=== PATIENT | female | born 1995 | race African-American/Black ===

== ENCOUNTER → 2020-09-03 10:38 | Outpatient (CLI) | payer MEDICAID, SELFPAY ==
[2020-09-03 12:24] LABS: hCG Titer Quant., Serum < 1 mIU/mL (1-3)
== END ==
PROVIDERS: Visit Provider Obstetrics & Gynecology
DX: O02.0 Blighted ovum and nonhydatidiform mole (principal)
CPT/HCPCS: 36415; 84702

== ENCOUNTER → 2020-09-05 10:20 | Outpatient (CLI) | payer MEDICAID, SELFPAY ==
[2020-09-05 11:35] LABS: hCG Titer Quant., Serum < 1 mIU/mL (1-3)
== END ==
PROVIDERS: Referring Provider Obstetrics & Gynecology; Visit Provider Obstetrics & Gynecology
DX: O20.0 Threatened abortion (principal); Z3A.00 Weeks of gestation of pregnancy not specified
CPT/HCPCS: 36415; 84702

== ENCOUNTER 2021-06-14 12:23 | Emergency (ER) | payer MEDICAID, SELFPAY ==
[2021-06-14 12:25] VITALS: BP 105/71; PULSE 74; RESP 16; TEMP 36.4; O2SAT 100; BMI 22.4
--- NOTE | 2021-06-14 13:23 | EX.ED.DYSGE1 ---
HPI History of Present Illness Chief Complaint: Other, Pain/Inj Informant: patient Onset/Context/Timing Onset: Weeks (2) Context: Gradual Onset Timing: Continuous Quality: Spinning Location: Head Worsened by: Laying down, movement of her head Relieved by: Nothing Narrative Narrative: Patient presents with difficulty swallowing, dizziness, fatigue, nausea, and vomiting for the past 2 weeks. Patient states it is worse when she gets up in the morning. Patient states it is also worse when she lays down. Patient states it is also worse whenever she moves her head. Patient describes her dizziness as a spinning sensation. Patient admits to some pain in her left ear as well. Patient states her vision feels blurry. Patient states she feels fatigued and tired.. Patient denies any fevers or chills. PFSH PFSH Medical History GERD (gastroesophageal reflux disease) Hyperthyroidism Smoker Home Medications NK 06/14/21 [History Last Taken Unknown] Allergy/AdvReac Type Severity Reaction Status Date / Time No Known Allergies Allergy Verified 06/14/21 12:25 Surgical History no surgical history no surgical history Social History (Updated 06/14/21 @ 13:[address] Ryan Reyes, DO) Electronic Cigarette Use: with nicotine substance use type: marijuana ROS ROS ED Constitutional Constitutional ED: Denies chills or fever(s) Eyes Eyes: Reports blurry vision; Denies diplopia ENT ENT ED: Reports ear pain left; Denies rhinorrhea or sore throat Cardiovascular Cardiovascular: Reports chest pain; Denies palpitations Respiratory/Chest Respiratory/Chest: Denies cough or dyspnea Gastrointestinal Gastrointestinal: Reports diarrhea, nausea and vomiting Genitourinary Genitourinary ED: Denies dysuria or hematuria Musculoskeletal Musculoskeletal: Reports back pain; Denies neck pain Integumentary Denies abscess or rash Neurologic Neurologic: Reports headache(s); Denies weakness Allergic/Immunologic Allergic/Immunologic ED: Denies mouth swelling or urticaria EXAM Physical Exam Const Vital Signs: 06/14/21 12:25 06/14/21 12:33 Temperature 97.6 F L Temperature Source Temporal Pulse Rate 74 Respiratory Rate 16 Respiratory Effort Normal Respiratory Pattern Normal Blood Pressure 105/71 Blood Pressure Mean 82 Pulse Ox 100 Oxygen Delivery Method Room Air Positive well nourished and well developed General Appearance ED: well developed and NAD HEENT Reports moist mucous membranes Eyes PERRL and EOMs intact bilaterally Neck supple and no JVD Neck Narrative: There is some mild tenderness over the right anterior neck. There are no masses palpated. There is no lymphadenopathy noted. Resp normal respiratory effort and clear to auscultation bilaterally Cardio regular rate and regular rhythm GI non-tender Palpation: soft Neuro oriented x3, CN's II-XII intact bilaterally and no sensory deficits noted Sensorium / Orientation: alert Motor Exam: strength 5/5 throughout MDM MDM MDM Narrative Medical decision making narrative: Patient was given IV fluids and a dose of meclizine here. CBC and comprehensive metabolic profile were within normal limits. Serum was negative. Urinalysis was within normal limits. CT scan of the soft tissue neck was obtained due to the patient sensation of swelling in her neck. There is no acute abnormality noted. This was interpreted by the radiologist and reviewed by myself. Patient feels better on reevaluation. Patient was able to ambulate to the bathroom and back without difficulty. Patient was advised of her findings. Patient was given a prescription for meclizine. Patient was instructed to follow-up with her primary care physician in 5 to 7 days for further evaluation. Patient understood and was agreeable with the plan. All questions were answered. Lab Data Attestation: I reviewed the patient's lab results. Labs: Laboratory Results - last 24 hr 06/14/21 06/14/21 06/14/21 14:02 14:02 14:02 WBC 4.4 RBC 4.87 Hgb 13.9 Hct 41.8 MCV 85.8 MCH 28.5 MCHC 33.3 RDW Std Deviation 38.9 RDW Coeff of Emily 12.4 Plt Count 285 MPV 10.2 Immature Gran % (Auto) 0.000 Neut % (Auto) 64.5 Lymph % (Auto) 28.2 [place] % (Auto) 6.1 Eos % (Auto) 0.5 Baso % (Auto) 0.7 Absolute Neuts (auto) 2.9 Absolute Lymphs (auto) 1.25 Nucleated RBC % 0 Sodium 141 Potassium 3.9 Chloride 109 H Carbon Dioxide 26.0 Anion Gap 6 BUN 7 Creatinine 0.95 Estim Creat Clear Calc 69.73 Est GFR (MDRD) Af Amer 90 Est GFR (MDRD) Non-Af 75 BUN/Creatinine Ratio 7.4 L Glucose 92 Calcium 9.8 Total Bilirubin 0.40 AST 19 ALT 17 Alkaline Phosphatase 51 Total Protein 7.5 Albumin 4.2 Globulin 3.3 Albumin/Globulin Ratio 1.3 Serum , Qual NEGATIVE Urine Color Urine Clarity Urine pH Ur Specific [place] Urine Protein Urine Glucose (UA) Urine Ketones Urine Occult Blood Urine Nitrite Urine Bilirubin Urine Urobilinogen Ur Leukocyte Esterase Urine RBC Urine WBC Ur Squamous Epith Cells Urine Bacteria Urine Mucus 06/14/21 14:02 WBC RBC Hgb Hct MCV MCH MCHC RDW Std Deviation RDW Coeff of Emily Plt Count MPV Immature Gran % (Auto) Neut % (Auto) Lymph % (Auto) [place] % (Auto) Eos % (Auto) Baso % (Auto) Absolute Neuts (auto) Absolute Lymphs (auto) Nucleated RBC % Sodium Potassium Chloride Carbon Dioxide Anion Gap BUN Creatinine Estim Creat Clear Calc Est GFR (MDRD) Af Amer Est GFR (MDRD) Non-Af BUN/Creatinine Ratio Glucose Calcium Total Bilirubin AST ALT Alkaline Phosphatase Total Protein Albumin Globulin Albumin/Globulin Ratio Serum , Qual Urine Color Yellow Urine Clarity Sl. Cloudy Urine pH 8.0 Ur Specific [place] 1.010 Urine Protein Negative Urine Glucose (UA) Normal Urine Ketones Negative Urine Occult Blood Negative Urine Nitrite Negative Urine Bilirubin Negative Urine Urobilinogen Normal Ur Leukocyte Esterase 25 H Urine RBC 0 SEEN Urine WBC 0-5 SEEN Ur Squamous Epith Cells 0-5 SEEN Urine Bacteria 0 SEEN Urine Mucus 0 SEEN Radiography Diagnostic Testing: Clinical Impression(s) from Imaging Studies Soft Tissue Neck CT 06/14/21 13:30 IMPRESSION: Normal enhanced CT examination of the soft tissues of the neck. Electronically Signed: Sheldon Dias MD at 15:26 EDT , Discharge Plan Triage Chief Complaint: Other, Pain/Inj ED Provider: Ryan Reyes Dx/Rx/DC Orders Clinical Impression: Vertigo, Odynophagia Instructions: ED Vertigo, Unspecified Prescriptions: No Action NK RF: 0 Primary Care Provider: Lesley Garcia SCHOLASTIC APTITUDE TEST GRADER Referrals: Lesley Garcia SCHOLASTIC APTITUDE TEST GRADER, SCHOLASTIC APTITUDE TEST GRADER-C [Primary Care Provider] - 5-7 Days Disposition Disposition: Home, Self Care
--- NOTE | 2021-06-14 13:30 | CT_ITS ---
STUDY: CT SOFT TISSUE NECK WITH CONTRAST REASON FOR EXAM: Female, 26 years old. Neck pain, dysphagia. Constant chest tightness for 2 weeks. RADIATION DOSAGE (If Supplied By Facility): CTDIvol = ( 11.43 ) mGy, DLP = ( 265.59 ) mGycm TECHNIQUE: The patient was scanned in a multi-detector CT scanner. High resolution transaxial imaging was performed following intravenous administration of 100 CC ISOVUE 300. Sagittal and coronal images were reconstructed. Individualized dose optimization techniques were used for this CT. COMPARISON: None. FINDINGS: Normal bilateral parotid glands. Normal bilateral drying can worker spaces. Normal bilateral parapharyngeal spaces. Normal bilateral carotid spaces. Normal bilateral sublingual and submandibular glands and spaces. Normal visualized nasopharynx. Normal retropharyngeal space. Normal perivertebral space. Normal visualized bilateral faucial tonsils. The visualized tongue, tongue base and oropharynx are normal. The visualized cervical lymph nodes (levels I-) are within normal size limits, and maintain normal morphology. There is no demonstrated solid or cystic mass lesion. There is no abnormal contrast enhancement. Normal epiglottis, bilateral vallecula and hypopharynx. The pre-epiglottic and paraglottic adipose spaces are normal. Normal visualized bilateral piriform sinuses, aryepiglottic folds, vocal cords, and arytenoid-cricoid articulations. Normal subglottic trachea. Normal bilateral lobes of the thyroid gland. Normal visualized pulmonary apices. Normal visualized paranasal sinuses. Normal visualized cervical spine. CT/Soft Tissue Neck WITH Contrast IMPRESSION: Normal enhanced CT examination of the soft tissues of the neck. Electronically Signed: Sheldon Dias MD at 15:26 EDT ,
[2021-06-14] MEDS: 0.9% Normal Saline 1,000 ML 1000 ML IV (13:56)
[2021-06-14] MEDS: Meclizine HCl 25 MG Tablet PO (14:00)
[2021-06-14 14:13] LABS: Absolute Lymphocyte Count 1.25 X10^3/uL (0.83-4.51); Absolute Neutrophil Count 2.9 X10^3/uL (2.0-7.7); Basophil# 0.03 X10^3/uL; Basophil% 0.7 % (0-1); Eosinophil# 0.02 X10^3/uL; Eosinophils% 0.5 % (0-5); Hematocrit 41.8 % (37-47); Hemoglobin 13.9 g/dL (12.0-15.0); Lymphocyte # 1.25 X10^3/ul (0.83-4.51); Lymphocyte % 28.2 % (19-41); Mean Corp Hgb Conc 33.3 g/dL (32-36); Mean Corpuscular Hgb 28.5 pg (27.0-32.0); Mean Corpuscular Volume 85.8 fL (81-99); Mean Platelet Vol. 10.2 fl (6.2-12.0); Monocyte# 0.27 X10^3/uL; Monocyte% 6.1 % (0-10); NRBC Flagged by Analyzer 0 % (0-5); Neutrophil # 2.86 X10^3/uL (2.7-7.7); Neutrophil % 64.5 % (47-70); Platelet Count 285 K/mm3 (150-450); RBC Distribution Width CV 12.4 % (11.6-14.6); RBC Distribution Width SD 38.9 fl (35.1-43.9); Red Blood Count 4.87 M/mm3 (4.2-5.4); White Blood Count 4.4 K/mm3 (4.4-11.0)
[2021-06-14 14:14] LABS: Bacteria 0 SEEN /hpf (None Seen); Color, Urine Yellow (Yellow); Glucose, Dipstick Normal (Normal); Ketone-Dipstick Negative (Negative); Leukocyte Esterase-Dipstick 25 /ul (Negative); Mucous, Urine 0 SEEN /hpf (<or=2+); Nitrite-Dipstick Negative (Negative); Occult Blood-Urine Negative /ul (Negative); Protein-Dipstick Negative (Negative); Red Blood Cells-Urine 0 SEEN /hpf (0-5); Urine Bilirubin Dipstick Negative (Negative); Urine Clarity Sl. Cloudy (Clear); Urine Urobilinogen Normal (Normal)
[2021-06-14 14:20] LABS: Squamous Epithelial Cells - UA 0-5 SEEN /hpf (5-10); White Blood Cells 0-5 SEEN /hpf (0-5)
[2021-06-14 14:29] LABS: ALB/GLOB Ratio 1.3 RATIO (0.9-2.4); AST(SGOT) 19 U/L (15-37); Alanine Aminotransfer ALT/SGPT 17 U/L (13-56); Albumin, Serum 4.2 g/dL (3.2-5.0); Alkaline Phosphatase 51 U/L (45-117); Anion Gap 6 (5-15); BUN 7 mg/dL (7-18); BUN/Creat Ratio 7.4 RATIO (10-20); Calcium,Total 9.8 mg/dL (8.5-10.1); Chloride 109 mmol/L (98-107); Creatinine, Serum 0.95 mg/dL (0.55-1.02); EST Glomerular Filtration Rate 75 mL/min (>60); Est Glom Filt Rate - Afr Amer 90 mL/min (>60); Estimated Creatinine Clearance 69.73 ml/min; Globulin 3.3 g/dL (2.2-4.2); Glucose 92 mg/dL (74-106); Potassium 3.9 mmol/L (3.5-5.1); Protein, Total 7.5 g/dL (6.4-8.2); Sodium Level 141 mmol/L (136-145)
[2021-06-14 14:43] LABS: Internal QC Validated? YES +Cl - CLEAR BKGD; Pregnancy, Serum, hCG Quali. NEGATIVE Negative
[2021-06-14 16:25] VITALS: BP 115/74; PULSE 78; RESP 15; O2SAT 99
== END 2021-06-14 16:26 | disposition home or self-care (01) ==
PROVIDERS: Emergency Provider Emergency Medicine; PCP Nurse Practitioner; Visit Provider Emergency Medicine
DX: R42 Dizziness and giddiness (principal); R11.2 Nausea with vomiting, unspecified; F12.90 Cannabis use, unspecified, uncomplicated; H92.02 Otalgia, left ear; R13.10 Dysphagia, unspecified; F17.210 Nicotine dependence, cigarettes, uncomplicated; H53.8 Other visual disturbances; K21.9 Gastro-esophageal reflux disease without esophagitis
CPT/HCPCS: 70491; 80053; 81001; 84703; 85025; 96360; 99283; J7030; Q9967

== ENCOUNTER 2022-03-25 10:56 | Emergency (ER) | payer MEDICAID, SELFPAY ==
[2022-03-25 10:56] VITALS: BP 103/68; PULSE 64; RESP 16; TEMP 36.3; O2SAT 100; BMI 19.8
--- NOTE | 2022-03-25 11:11 | EDS_ITS ---
HPI HPI - GI History of Present Illness Chief Complaint: GI Bleed Narrative Narrative: 27-year-old female who denies significant past medical history presents with multiple somatic complaints for which she has been worked up for years, but her main complaint today is rectal bleeding. She states that she did not want to have a bowel movement since Monday because she is having a flareup. She has had high heart rate on her Fitbit as high as 105 bpm. She states she is seeing furniture lumber production worker's and other physicians/specialist in [place]. She complains of right-sided abdominal pain that she has had for the last few days, and additionally she awoke this morning with bright red blood per rectum. She denies taking any blood thinners. No exacerbating or alleviating factors. PFSH PFSH Medical History GERD (gastroesophageal reflux disease) Hyperthyroidism Smoker Home Medications ondansetron 4 mg disintegrating tablet 4 mg PO Q6H PRN nausea and vomiting #20 tabs 03/25/22 [Rx Last Taken Unknown] Allergy/AdvReac Type Severity Reaction Status Date / Time No Known Allergies Allergy Verified 03/25/22 11:00 Social History (Updated 06/14/21 @ 13:[address] Ryan Reyes, DO) Smoking Status: Never smoker Electronic Cigarette Use: with nicotine substance use type: marijuana ROS ROS ED ROS Narrative Constitutional: No fever, no chills. HEENT: No sore throat. No neck pain. No loss of vision. No rhinorrhea. Cardiovascular: No chest pain. Positive high heart rate in the 100s/palpitations. No pedal edema. Respiratory: No cough, no shortness of breath. Abdominal: Right-sided abdominal pain. No nausea. No vomiting. Bright red blood per rectum. Genitourinary: No dysuria. No hematuria. Musculoskeletal: Chronic right thigh pain/myalgias. No arthralgias. Neurologic: No headaches. No dizziness. No lightheadedness. Skin: No rash. No change in color. Psychiatric: No depression. No anxiety. EXAM Physical Exam Narrative Exam Narrative: Afebrile. Vital signs noted. HEENT: Normocephalic. Atraumatic. PERRL, EOMI. Neck soft and supple. No point tenderness or step off. Cardiovascular: Regular rate and rhythm. No murmurs, rubs, or gallops appreciated. Respiratory: No tachypnea. Lungs clear to auscultation bilaterally. Gastrointestinal: Abdomen soft, nontender, with normoactive bowel sounds. No rebound or guarding. Neurological: Awake. Alert. Nonfocal, nonlateralizing. Skin: No rash. Normal color. No pallor. Musculoskeletal: No pedal edema. Full range of motion extremities. Const Vital Signs: 03/25/22 10:56 Temperature 97.3 F L Temperature Source Temporal Pulse Rate 64 Respiratory Rate 16 Blood Pressure 103/68 Blood Pressure Mean 79 Pulse Ox 100 Oxygen Delivery Method Room Air MDM MDM MDM Narrative Medical decision making narrative: Her vital signs appear normal and she does not have a rapid heart rate. Pulse is currently 64 bpm. Pulse ox 100% on room air. I will obtain CBC, CMP, and CT imaging along with serum . I reviewed her laboratory work including CBC, CMP, lipase, serum test. She will be bolused normal saline. CBC shows neutropenia of 3.1 not I think is nonspecific, hemoglobin normal at 13.7 platelet count normal at 216. CMP shows chloride slightly elevated at 109 which it was in the past. She has a normal BUN and creatinine. LFTs are normal with a normal AST and a normal ALT. Glucose normal at 93. Serum is negative. I reviewed her CT scan and interpreted it. I see no acute process. I agree with radiology read of ovarian cyst and there was mention of. Pancreatic fluid. Patient denies having vomiting but states she gets nauseated at times. I added a lipase to look for acute inflammation of the garcia creas/pancreatitis and it is normal at 309. She is not having brisk rectal bleeding/hemorrhage. I do feel that this may be secondary to an internal hemorrhoid versus a broken blood vessel. She has not had a bowel movement here. I deferred rectal examination. At this point in time, she states she had a history of tachycardia but she has not been tachycardic here. I obtained an EKG and interpreted it and it is sinus bradycardia in fact at 50 bpm without ectopy or acute ST changes. No STEMI. At this point in time, she was referred to gastroenterology regarding her peripancreatic fluid, and her stable rectal bleed. She was written a prescription for Zofran for her nausea. I feel she be discharged safely home with follow-up. Return instructions to the emergency department were reviewed. Disposition is discharged home in stable condition. Lab Data Attestation: I reviewed the patient's lab results. Labs: Laboratory Results - last 24 hr 03/25/22 03/25/22 03/25/22 11:22 11:22 11:22 WBC 3.1 L RBC 4.76 Hgb 13.7 Hct 40.2 MCV 84.5 MCH 28.8 MCHC 34.1 RDW Std Deviation 39.1 RDW Coeff of Emily 12.6 Plt Count 216 MPV 9.8 Immature Gran % (Auto) 0.000 Neut % (Auto) 54.5 Lymph % (Auto) 27.8 [place] % (Auto) 14.1 H Eos % (Auto) 2.9 Baso % (Auto) 0.7 Absolute Neuts (auto) 1.7 L Absolute Lymphs (auto) 0.85 Nucleated RBC % 0 Sodium 137 Potassium 4.1 Chloride 109 H Carbon Dioxide 26.0 Anion Gap 2 L BUN 13 Creatinine 0.82 Estim Creat Clear Calc 78.36 Est GFR (MDRD) Af Amer 106 Est GFR (MDRD) Non-Af 88 BUN/Creatinine Ratio 15.9 Glucose 93 Calcium 9.6 Total Bilirubin 0.30 AST 26 ALT 21 Alkaline Phosphatase 44 L Total Protein 7.5 Albumin 4.2 Globulin 3.3 Albumin/Globulin Ratio 1.3 Lipase Serum , Qual NEGATIVE 03/25/22 11:22 WBC RBC Hgb Hct MCV MCH MCHC RDW Std Deviation RDW Coeff of Emily Plt Count MPV Immature Gran % (Auto) Neut % (Auto) Lymph % (Auto) [place] % (Auto) Eos % (Auto) Baso % (Auto) Absolute Neuts (auto) Absolute Lymphs (auto) Nucleated RBC % Sodium Potassium Chloride Carbon Dioxide Anion Gap BUN Creatinine Estim Creat Clear Calc Est GFR (MDRD) Af Amer Est GFR (MDRD) Non-Af BUN/Creatinine Ratio Glucose Calcium Total Bilirubin AST ALT Alkaline Phosphatase Total Protein Albumin Globulin Albumin/Globulin Ratio Lipase 309 Serum , Qual Radiography Diagnostic Testing: Clinical Impression(s) from Imaging Studies Abdomen/Pelvis CT 03/25/22 11:11 IMPRESSION: 3.3 cm x 2.6 on left ovarian cyst. Small amount of fluid is seen in the cul-de-sac. Edema seen in the portal triads of the liver. Mild degree of peripancreatic fluid. Electronically Signed: Sheldon Dias MD at 12:42 EST , Discharge Plan Triage Chief Complaint: GI Bleed ED Provider: Tyler Andersen Dx/Rx/DC Orders Clinical Impression: Rectal bleeding, Peripancreatic fluid collection, Tachycardia, Nausea Instructions: ED Lower GI Bleeding (Stable) Prescriptions: New ondansetron 4 mg tablet,disintegrating 4 mg PO Q6H PRN (Reason: nausea and vomiting) Qty: 20 0RF Primary Care Provider: Lesley Garcia NP Referrals: Friend,Brandon, [Med Staff - Active Staff] - As soon as possible Lesley Garcia NP, DIPLOMATIC INTERPRETER/TRANSLATOR-C [Primary Care Provider] - As soon as possible Disposition Disposition: Home, Self Care
--- NOTE | 2022-03-25 11:11 | CT_ITS ---
STUDY: CT ABDOMEN AND PELVIS WITH CONTRAST REASON FOR EXAM: Female, 27 years old. Abdominal cramping and rectal bleed. RADIATION DOSAGE (If Supplied By Facility): CTDIvol = ( 12.49 ) mGy, DLP = ( 237.73 ) mGycm TECHNIQUE: Transaxial images were obtained from the dome of the diaphragm to the symphysis pubis without oral contrast. 100CC ISOVUE 300 was administered. Sagittal and coronal images were reconstructed. Individualized dose optimization techniques were used for this CT. COMPARISON: None. FINDINGS: The visualized lung bases are unremarkable. The visualized portions of the heart are within normal limits. Edema seen within the portal triads. Small amount of pericholecystic fluid. Normal spleen. Normal pancreas. Normal bilateral adrenal glands. Normal right kidney. Normal left kidney. Normal visualized stomach. Normal small intestine. Normal colon. The appendix is visualized and appears normal. Normal abdominal aorta. Normal inferior vena cava. Normal retroperitoneum. Normal urinary bladder. There is a 3.3 cm x 2.6 cm left ovarian cyst. Small amount of free fluid is seen in the cul-de-sac. Normal abdominal wall. Loss of the normal lumbar lordosis. CT/Abdomen/Pelvis W IV Cont ONLY IMPRESSION: 3.3 cm x 2.6 on left ovarian cyst. Small amount of fluid is seen in the cul-de-sac. Edema seen in the portal triads of the liver. Mild degree of peripancreatic fluid. Electronically Signed: Sheldon Dias MD at 12:42 EST ,
--- NOTE | 2022-03-25 11:16 | EKG12_ITS ---
Test Reason : GI BLEED Blood Pressure : / mmHG Vent. Rate : 050 BPM Atrial Rate : 050 BPM P-R Int : 144 ms QRS Dur : 078 ms QT Int : 404 ms P-R-T Axes : 000 068 064 degrees QTc Int : 368 ms Sinus bradycardia Otherwise normal ECG Confirmed by CALLI ORDAZ, DENA ([id number]), senior editor JAMAAL GOMES ([id number]) on 03/28/2022 10:58:14 AM Referred By: Confirmed By:PILLO MCCURDY MD
[2022-03-25] MEDS: 0.9% Normal Saline 1,000 ML 999 ML IV (11:28)
[2022-03-25 11:34] LABS: Absolute Lymphocyte Count 0.85 X10^3/uL (0.83-4.51); Absolute Neutrophil Count 1.7 X10^3/uL (2.0-7.7); Basophil# 0.02 X10^3/uL; Basophil% 0.7 % (0-1); Eosinophil# 0.09 X10^3/uL; Eosinophils% 2.9 % (0-5); Hematocrit 40.2 % (37-47); Hemoglobin 13.7 g/dL (12.0-15.0); Lymphocyte # 0.85 X10^3/ul (0.83-4.51); Lymphocyte % 27.8 % (19-41); Mean Corp Hgb Conc 34.1 g/dL (32-36); Mean Corpuscular Hgb 28.8 pg (27.0-32.0); Mean Corpuscular Volume 84.5 fL (81-99); Mean Platelet Vol. 9.8 fl (6.2-12.0); Monocyte# 0.43 X10^3/uL; Monocyte% 14.1 % (0-10); NRBC Flagged by Analyzer 0 % (0-5); Neutrophil # 1.67 X10^3/uL (2.7-7.7); Neutrophil % 54.5 % (47-70); Platelet Count 216 K/mm3 (150-450); RBC Distribution Width CV 12.6 % (11.6-14.6); RBC Distribution Width SD 39.1 fl (35.1-43.9); Red Blood Count 4.76 M/mm3 (4.2-5.4); White Blood Count 3.1 K/mm3 (4.4-11.0)
[2022-03-25 11:47] LABS: ALB/GLOB Ratio 1.3 RATIO (0.9-2.4); AST(SGOT) 26 U/L (15-37); Alanine Aminotransfer ALT/SGPT 21 U/L (13-56); Albumin, Serum 4.2 g/dL (3.2-5.0); Alkaline Phosphatase 44 U/L (45-117); Anion Gap 2 (5-15); BUN 13 mg/dL (7-18); BUN/Creat Ratio 15.9 RATIO (10-20); Calcium,Total 9.6 mg/dL (8.5-10.1); Chloride 109 mmol/L (98-107); Creatinine, Serum 0.82 mg/dL (0.55-1.02); EST Glomerular Filtration Rate 88 mL/min (>60); Est Glom Filt Rate - Afr Amer 106 mL/min (>60); Estimated Creatinine Clearance 78.36 ml/min; Globulin 3.3 g/dL (2.2-4.2); Glucose 93 mg/dL (74-106); Potassium 4.1 mmol/L (3.5-5.1); Protein, Total 7.5 g/dL (6.4-8.2); Sodium Level 137 mmol/L (136-145)
[2022-03-25 12:01] LABS: Internal QC Validated? YES +Cl - CLEAR BKGD; Pregnancy, Serum, hCG Quali. NEGATIVE Negative
[2022-03-25 12:56] VITALS: BP 123/84
[2022-03-25 13:32] LABS: Lipase 309 U/L (73-393)
[2022-03-25 14:11] VITALS: RESP 16
== END 2022-03-25 14:12 | disposition home or self-care (01) ==
PROVIDERS: Emergency Provider Emergency Medicine; PCP Nurse Practitioner; Visit Provider Emergency Medicine
DX: K62.5 Hemorrhage of anus and rectum (principal); D70.9 Neutropenia, unspecified; N83.202 Unspecified ovarian cyst, left side; K85.90 Acute pancreatitis without necrosis or infection, unspecified; R00.0 Tachycardia, unspecified; F17.290 Nicotine dependence, other tobacco product, uncomplicated; R11.0 Nausea
CPT/HCPCS: 74177; 80053; 83690; 84703; 85025; 93005; 96360; 99283; J7030; J7040; Q9967; A4216